=== PATIENT | male | born 1960 | race Caucasian/White ===

== ENCOUNTER 2024-09-19 10:25 | Inpatient (IN) | payer OTHER ==
[~2024-09-19] VITALS: Ht 177.8 cm; Wt 77.1 kg
[2024-09-19 11:03] LABS: BASOPHILS % (AUTO) 0.1 % (0.0-2.0); EOSINOPHILS % (AUTO) 0.1 % (0.0-7.0); HEMATOCRIT 37.5 % (36.7-47.1); HEMOGLOBIN 12.7 g/dL (12.5-16.3); LYMPHOCYTES # (AUTO) 1.1 K/uL (0.8-4.8); LYMPHOCYTES % (AUTO) 8.2 % (20.5-51.5); MEAN CORPUSCULAR HEMOGLOBIN 28.6 uug (23.8-33.4); MEAN CORPUSCULAR HGB CONC 34 g/dL (32.5-36.3); MEAN CORPUSCULAR VOLUME 84.8 fL (73.0-96.2); MONOCYTES # (AUTO) 1.7 K/uL (0.1-1.30); MONOCYTES % (AUTO) 12.5 % (0.0-11.0); NEUTROPHILS # (AUTO) 10.8 K/uL (1.8-8.9); NEUTROPHILS % (AUTO) 79.1 % (38.5-71.5); PLATELET COUNT (AUTO) 161 K/uL (152-348); RED BLOOD CELL COUNT(AUTO) 4.42 MIL/uL (4.06-5.63); RED CELL DISTRIBUTION WIDTH 14.7 % (12.1-16.2); WHITE BLOOD COUNT (AUTO) 13.6 K/uL (3.6-10.2)
[2024-09-19 11:10] LABS: CALCIUM 9.4 mg/dL (8.5-10.1); CARBON DIOXIDE 24 mmol/L (21-32); CHLORIDE 94 mmol/L (98-107); CREATININE 1.2 mg/dL (0.6-1.3); GLUCOSE 149 mg/dL (74-106); POTASSIUM 3.6 mmol/L (3.5-5.1); SODIUM SERUM 129 mmol/L (136-145); UREA NITROGEN, BLOOD 24 mg/dL (7-18)
[2024-09-19 11:13] LABS: DIFFERENTIAL COMMENT 1
[2024-09-19] MEDS: IV NS 1000 ML 1,000 ML IV ONE (11:20)
[2024-09-19 11:23] LABS: ALANINE AMINOTRANSFERASE 66 U/L (16-63); ALBUMIN 2.6 g/dL (3.4-5.0); ALKALINE PHOSPHATASE 123 U/L (50-136); ASPARTATE AMINOTRANSFERASE 59 U/L (15-37); BILIRUBIN,DIRECT 0.5 mg/dL (0.0-0.2); BILIRUBIN,TOTAL 1.4 mg/dL (0.2-1.0); NT-PRO BNP 339 pg/mL (0-125); TOTAL PROTEIN, SERUM 7.2 g/dL (6.4-8.2)
[2024-09-19] MEDS ORDERED: AZITHROMYCIN 500MG/ D5W 250ML IVPB **ER PYXIS ONLY IV ONE (11:59)
[2024-09-19] MEDS: AZITHROMYCIN IV 500 MG in IV DEXTROSE 5% 250 ML IV ONE (12:05)
[2024-09-19] MEDS ORDERED: AMLO10TA59 PO (12:53)
[2024-09-19] MEDS ORDERED: SWABABLE VALVE TRANSFER SET EA MC ONE (12:55)
[2024-09-19] MEDS ORDERED: IOHEXOL 300MG/ML 100 ML INFUS..BTL ONE (12:55)
[2024-09-19] MEDS ORDERED: IV NORMAL SALINE 250 ML IV ONE (12:55)
[2024-09-19 13:12] LABS: *BILIRUBIN,URIN 1+ (NEGATIVE); *BLOOD, URINE 1+ (NEGATIVE); *CLARITY,URINE CLEAR (CLEAR); *COLOR,URINE YELLOW (YELLOW); *KETONES,URINE 1+ (NEGATIVE); *PROTEIN,URINE 2+ (NEGATIVE); LEUKOCYTE ESTERASE ,URINE NEGATIVE (NEGATIVE); NITRITE, URINE NEGATIVE (NEGATIVE); UGLUCOSE NEGATIVE (NEGATIVE)
[2024-09-19 13:29] LABS: WBC,URINE 0-3 /HPF (0-3)
[2024-09-19 14:31] VITALS: BP 131/65; TEMP 100; O2SAT 98
[2024-09-19] MEDS ORDERED: ONDANSETRON 4 MG/2 ML VIAL IV PRN (17:30)
[2024-09-19] MEDS ORDERED: MAGNESIUM HYDROXIDE 30 ML LIQUID UDC PO PRN (17:30)
[2024-09-19] MEDS ORDERED: MORPHINE SULFATE 2 MG/1 ML DISP.SYRIN IV PRN (17:30)
[2024-09-19] MEDS: MEROPENEM 1 G in IV NORMAL SALINE 100 ML IV SCH (17:54)
[2024-09-19] MEDS: POTASSIUM CHLORIDE 20 MEQ in IV NS 1000 ML 1,000 ML IV PRN (17:57)
[2024-09-19] MEDS: ACETAMINOPHEN 325 MG TABLET PO PRN (18:04)
[2024-09-19 19:40] VITALS: BP 122/70; TEMP 98.7; O2SAT 99
[2024-09-19 23:35] VITALS: BP 130/57; TEMP 98.5; O2SAT 99
[2024-09-20 05:45] VITALS: BP 122/68; TEMP 99.8; O2SAT 98
[2024-09-20] MEDS: PANTOPRAZOLE SODIUM 40 MG TABLET.DR PO SCH (06:05)
[2024-09-20 07:11] LABS: BASOPHILS % (AUTO) 0.2 % (0.0-2.0); EOSINOPHILS % (AUTO) 0.1 % (0.0-7.0); HEMATOCRIT 33.3 % (36.7-47.1); HEMOGLOBIN 11.4 g/dL (12.5-16.3); LYMPHOCYTES # (AUTO) 1.1 K/uL (0.8-4.8); LYMPHOCYTES % (AUTO) 12.2 % (20.5-51.5); MEAN CORPUSCULAR HEMOGLOBIN 28.8 uug (23.8-33.4); MEAN CORPUSCULAR HGB CONC 34 g/dL (32.5-36.3); MEAN CORPUSCULAR VOLUME 84.4 fL (73.0-96.2); MONOCYTES # (AUTO) 1.1 K/uL (0.1-1.30); MONOCYTES % (AUTO) 11.4 % (0.0-11.0); NEUTROPHILS # (AUTO) 7.1 K/uL (1.8-8.9); NEUTROPHILS % (AUTO) 76.1 % (38.5-71.5); PLATELET COUNT (AUTO) 146 K/uL (152-348); RED BLOOD CELL COUNT(AUTO) 3.95 MIL/uL (4.06-5.63); RED CELL DISTRIBUTION WIDTH 14.2 % (12.1-16.2); WHITE BLOOD COUNT (AUTO) 9.4 K/uL (3.6-10.2)
[2024-09-20 07:43] VITALS: BP 133/69; TEMP 98.9; O2SAT 98
[2024-09-20 07:48] LABS: DIFFERENTIAL COMMENT 1
[2024-09-20 07:58] LABS: ALBUMIN 2.2 g/dL (3.4-5.0); BILIRUBIN,TOTAL 1.1 mg/dL (0.2-1.0); CALCIUM 8.4 mg/dL (8.5-10.1); PHOSPHOROUS 1.9 mg/dL (2.5-4.9); POTASSIUM 3.7 mmol/L (3.5-5.1); TOTAL PROTEIN, SERUM 6.1 g/dL (6.4-8.2)
[2024-09-20 07:59] LABS: THYROID STIMULATING HORMONE 1.021 mIU/mL (0.358-3.740)
[2024-09-20] MEDS: POTASSIUM PHOSPHATE MM 7.5 MMOL in IV NORMAL SALINE 97.5 ML IV ONE (11:19)
[2024-09-20 11:20] VITALS: BP 154/85; TEMP 99.8; O2SAT 99
[2024-09-20] MEDS: MEROPENEM 1 G in IV NORMAL SALINE 100 ML IV SCH (14:12)
[2024-09-20 16:11] VITALS: BP 149/88; TEMP 98; O2SAT 98
[2024-09-20] MEDS ORDERED: DEXTROSE 50% 50 ML DISP.SYRIN IV PRN (19:30)
[2024-09-20 19:40] VITALS: BP 112/61; TEMP 98.9; O2SAT 99
[2024-09-20] MEDS: BLOOD SUGAR DIAGNOSTIC 1 EACH STRIP VI SCH (20:22)
[2024-09-20] MEDS: INSULIN REGULAR, HUMAN 1000 UNIT/10 ML VIAL SQ PRN (20:23)
[2024-09-21 06:10] VITALS: BP 153/82; TEMP 98.8; O2SAT 95
[2024-09-21 07:11] LABS: BASOPHILS % (AUTO) 0.2 % (0.0-2.0); EOSINOPHILS % (AUTO) 0.4 % (0.0-7.0); HEMATOCRIT 35.8 % (36.7-47.1); HEMOGLOBIN 12.1 g/dL (12.5-16.3); LYMPHOCYTES # (AUTO) 1.4 K/uL (0.8-4.8); LYMPHOCYTES % (AUTO) 16.3 % (20.5-51.5); MEAN CORPUSCULAR HEMOGLOBIN 28.7 uug (23.8-33.4); MEAN CORPUSCULAR HGB CONC 34 g/dL (32.5-36.3); MONOCYTES # (AUTO) 0.9 K/uL (0.1-1.30); MONOCYTES % (AUTO) 10.9 % (0.0-11.0); NEUTROPHILS # (AUTO) 6.1 K/uL (1.8-8.9); NEUTROPHILS % (AUTO) 72.2 % (38.5-71.5); PLATELET COUNT (AUTO) 182 K/uL (152-348); RED BLOOD CELL COUNT(AUTO) 4.21 MIL/uL (4.06-5.63); RED CELL DISTRIBUTION WIDTH 14.8 % (12.1-16.2); WHITE BLOOD COUNT (AUTO) 8.5 K/uL (3.6-10.2)
[2024-09-21 07:15] LABS: DIFFERENTIAL COMMENT 1
[2024-09-21 07:19] LABS: ALBUMIN 2.3 g/dL (3.4-5.0); BILIRUBIN,TOTAL 0.7 mg/dL (0.2-1.0); CALCIUM 8.6 mg/dL (8.5-10.1); CREATININE 0.9 mg/dL (0.6-1.3); MAGNESIUM 2.2 mg/dL (1.8-2.4); PHOSPHOROUS 2.4 mg/dL (2.5-4.9); POTASSIUM 4.3 mmol/L (3.5-5.1); TOTAL PROTEIN, SERUM 6.5 g/dL (6.4-8.2)
[2024-09-21 11:06] VITALS: BP 135/77; TEMP 98.6; O2SAT 97
[2024-09-21] MEDS: NEUTRA PHOS PACKET PO ONE (12:20)
[2024-09-21] MEDS ORDERED: LEVO500T90 PO (15:49)
[2024-09-21] MEDS ORDERED: METF-440 PO (15:50)
[2024-09-21] MEDS ORDERED: LISI-782 PO (15:52)
[2024-09-21 16:24] VITALS: BP 149/78; TEMP 98.9; O2SAT 99
== END 2024-09-21 17:50 | disposition home or self-care (01) | DRG 720 ==
LOC: ER 10:25 → TELE3 13:40 → MEDSURG3 09-20 10:20
PROVIDERS: ADMIT Internal Medicine; ATTEND Internal Medicine
DX: A41.50 Gram-negative sepsis, unspecified (principal); N17.0 Acute kidney failure with tubular necrosis; G92.8 Other toxic encephalopathy; J15.69 Pneumonia due to other Gram-negative bacteria; E43 Unspecified severe protein-calorie malnutrition; C34.2 Malignant neoplasm of middle lobe, bronchus or lung; K76.0 Fatty (change of) liver, not elsewhere classified; E83.39 Other disorders of phosphorus metabolism; E11.65 Type 2 diabetes mellitus with hyperglycemia; D50.9 Iron deficiency anemia, unspecified; E86.0 Dehydration; E87.1 Hypo-osmolality and hyponatremia; B18.2 Chronic viral hepatitis C; I25.10 Atherosclerotic heart disease of native coronary artery without angina pectoris; B18.1 Chronic viral hepatitis B without delta-agent; R65.20 Severe sepsis without septic shock; Z88.0 Allergy status to penicillin; Z59.01 Sheltered homelessness; Z86.19 Personal history of other infectious and parasitic diseases; E87.6 Hypokalemia; Z85.828 Personal history of other malignant neoplasm of skin
CPT/HCPCS: 36415; 71045; 71260; 82378; 83550; 83605; 83690; 83735; 84100; 84443; 84484; 85025; 87086; A4606; A4663; G0378; J0456; J1815; J2185; J3480; J3490; J7040; Q9967